=== PATIENT | male | born 1990 | race Caucasian/White ===

== ENCOUNTER 2019-05-19 14:32 | Emergency (ER) | payer OTHER, BC ==
[~2019-05-19] VITALS: Ht 182.9 cm; Wt 117.9 kg
== END 2019-05-19 16:04 | disposition home or self-care (01) ==
LOC: ED 14:32
DX: S00.03XA Contusion of scalp, initial encounter (principal); W17.89XA Other fall from one level to another, initial encounter; I10 Essential (primary) hypertension; Z79.899 Other long term (current) drug therapy
CPT/HCPCS: 99283; A9270

== ENCOUNTER 2022-01-21 23:42 | Emergency (ER) | payer OTHER ==
[~2022-01-21] VITALS: Ht 182.9 cm; Wt 140.0 kg
[~2022-01-21 23:42] MED LIST: ALEVE220 M1 PO; CYCLOBENZAPRINE10 MG PO; HYDROCHLOROTH12.5 M1 PO; IBUPROFEN600 MG PO; LIDODERM700 MG TOP; LISINOPRIL-HCT1 EAC2 PO
[2022-01-22] MEDS ORDERED: NAPROSYN500 MG PO (00:20)
== END 2022-01-22 01:05 | disposition home or self-care (01) ==
LOC: ED 23:42
DX: S63.601A Unspecified sprain of right thumb, initial encounter (principal); X58.XXXA Exposure to other specified factors, initial encounter; I10 Essential (primary) hypertension
CPT/HCPCS: 29125; 73130; 99283-25

== ENCOUNTER 2023-01-26 20:56 | Emergency (ER) | payer OTHER ==
[~2023-01-26] VITALS: Ht 182.9 cm; Wt 149.0 kg
--- OUTSIDE RECORDS SUMMARY | ~2023-01-26 | XMS | Continuity of Care Document ---
Demographics + + + | Address | [address] | | | [place] [address] | + + + | Preferred Language | Unknown | + + + | Marital Status | | + + + | Restorationist Affiliation | Unknown | + + + | Race | White | + + + | Ethnic Group | Not or | + + + Author + + + | Author | [facility] | + + + | Organization | [facility] | + + + | Address | [address] | | | [place] [address] | + + + | Phone | | + + + Care Team Providers + + + + | Care Machine Clothing Worker Name | Role | Phone | + + + + Unavailable | Unavailable | + + + + Unavailable | Unavailable | + + + + Allergies No information. Encounters No information. Functional Status No information. Immunizations No information. Medications + + + + | date | description | facility | + + + + | 2016-06-10 00:00 | LIDOCAINE | [facility] | + + + + | 2022-01-22 00:00 | NAPROXEN | [facility] | + + + + | 2022-01-22 00:00 | NAPROXEN SODIUM | [facility] | + + + + | 2016-06-10 00:00 | IBUPROFEN | [facility] | + + + + | 2022-01-22 00:00 | HYDROCHLOROTHIAZIDE | [facility] | + + + + | 2016-06-10 00:00 | CYCLOBENZAPRINE HCL | [facility] | + + + + Problems + + + + | date | description | facility | + + + + | 2016-06-10 00:00 | Low back pain | [facility] | + + + + | 2022-01-22 00:00 | Sprain of thumb | [facility] | + + + + Procedures No information. Results/Labs No information. Social History No information. Vital Signs + + + +---------+ | date | measurement | value | units | + + + +---------+ | 2022-01-21 00:00 | BMI | 41.9 | kg/m2 | + + + +---------+ | 2022-01-21 00:00 | height_metric | 182.88 | cm | + + + +---------+ | 2022-01-21 00:00 | height_standard | 72 | in | + + + +---------+ | 2022-01-21 00:00 | weight_metric | 140 | kg | + + + +---------+ | 2022-01-21 00:00 | weight_standard | 308.65 | lb | + + + +---------+ | 2022-01-22 00:00 | BP_diastolic | 90 | mmHg | + + + +---------+ | 2022-01-22 00:00 | BP_systolic | 148 | mmHg | + + + +---------+ | 2022-01-22 00:00 | heart_rate | 90 | /min | + + + +---------+ | 2022-01-22 00:00 | o2_saturation | 99 | % | + + + +---------+ | 2022-01-22 00:00 | respiration_rate | 18 | /min | + + + +---------+ | 2022-01-22 00:00 | temperature_metric | 37 | C | | | | | | + + + +---------+ | 2022-01-22 00:00 | | 98.6 | F | | | temperature_standar | | | | | d | | | + + + +---------+"
--- OUTSIDE RECORDS SUMMARY | ~2023-01-26 | XMS | Continuity of Care Document ---
Demographics + + + | Address | [address] | | | [place] [address] | + + + | Preferred Language | Unknown | + + + | Marital Status | | + + + | Alevism Affiliation | Unknown | + + + | Race | White | + + + | Ethnic Group | Not or | + + + Author + + + | Author | [facility] | + + + | Organization | [facility] | + + + | Address | [address] | | | [place] [address] | + + + | Phone | | + + + Care Team Providers + + + + | Care Ordnance Artificer Name | Role | Phone | + + + + Unavailable | Unavailable | + + + + Unavailable | Unavailable | + + + + Allergies No information. Encounters No information. Functional Status No information. Immunizations No information. Medications + + + + | date | description | facility | + + + + | 2016-06-10 00:00 | LIDOCAINE | [facility] | + + + + | 2022-01-22 00:00 | NAPROXEN | [facility] | + + + + | 2022-01-22 00:00 | NAPROXEN SODIUM | [facility] | + + + + | 2016-06-10 00:00 | IBUPROFEN | [facility] | + + + + | 2022-01-22 00:00 | HYDROCHLOROTHIAZIDE | [facility] | + + + + | 2016-06-10 00:00 | CYCLOBENZAPRINE HCL | [facility] | + + + + Problems + + + + | date | description | facility | + + + + | 2016-06-10 00:00 | Low back pain | [facility] | + + + + | 2022-01-22 00:00 | Sprain of thumb | [facility] | + + + + Procedures [...]
[~2023-01-26 20:56] MED LIST changes: +NAPROSYN500 MG PO
[2023-01-26 21:37] LABS: BASOPHILS 0.6 % (0-2); EOSINOPHILS 1.3 % (0-6); HEMATOCRIT 40.7 % (35.0-50.0); HEMOGLOBIN 13.8 g/dL (12.0-18.0); LYMPHOCYTES 32.5 % (24-44); MCH 30.8 (27-36); MCV 90.6 fl (81-99); MONOCYTES 7.1 % (0-12); NEUTROPHILS 58.5 % (39-80); PLATELET COUNT 368 K/uL (140-440); RBC 4.49 M/ul (4.3-5.7); RDW 13.4 (10.5-15.0)
[2023-01-26 21:53] LABS: ALBUMIN 3.4 g/dL (3.4-5.0); ALBUMIN/GLOBULIN RATIO 0.85 (1.1-2.4); ANION GAP 10.7 (7-21); BILIRUBIN, TOTAL 0.2 ng/dL (0.2-1.0); BUN/CREATININE RATIO 9.45 (6.0-28.6); CALCIUM 8.7 mg/dL (8.5-10.1); CREATININE, SERUM 0.74 mg/dL (0.70-1.30); MAGNESIUM 1.9 mg/dL (1.8-2.4); POTASSIUM 3.7 mmol/L (3.5-5.1); PROTEIN, TOTAL 7.4 g/dL (6.4-8.2)
[2023-01-26 22:15] VITALS: BP 148/99
--- NOTE | 2023-01-28 19:39 | EKG ---
[facility] [address] [place], [place] [address] Signed Sinus rhythm with occasional premature ventricular complexes Otherwise normal ECG No previous ECGs available Confirmed by MIGEL SALVADOR MD ([id number]) on 01/28/2023 7:38:57 PM Electronically Signed By: MIGEL SALVADOR 01/28/23 193 PATIENT NAME: CHRIS SUAREZ Electrocardiogram DATE OF : [birth year] PHYSICIAN: MIGEL SALVADOR REPORT #: [id number] REPORT IS CONFIDENTIAL AND NOT TO BE RELEASED WITHOUT AUTHORIZATION
== END 2023-01-26 22:15 | disposition home or self-care (01) ==
LOC: ED 20:56
PROVIDERS: Emergency Medicine
DX: R00.2 Palpitations (principal); I49.3 Ventricular premature depolarization; I10 Essential (primary) hypertension
CPT/HCPCS: 36415; 71045; 80053; 83735; 84484; 85025; 93005; 93010; 99285-25

== ENCOUNTER 2024-12-06 21:34 | Emergency (ER) | payer BC ==
[~2024-12-06] VITALS: Ht 182.9 cm; Wt 157.0 kg
[~2024-12-06 21:34] MED LIST changes: +ATORVASTATIN CA20 MG PO; +CEPHALEXIN500 M1 PO; +METOPROLOL SUCC50 MG PO
[2024-12-07] MEDS ORDERED: LIDOCAINE HCL 4% 1 EACH PATCH TD ONE (00:15)
[2024-12-07] MEDS ORDERED: KETOROLAC TROMETHAMINE 60 MG/2 ML VIAL IM ONE (00:15)
[2024-12-07] MEDS ORDERED: CYCLOBENZAPRINE HCL 10 MG HOME.PACK PO ONE (00:15)
[2024-12-07] MEDS ORDERED: LIDODERM1 EACH TOP (00:25)
[2024-12-07] MEDS ORDERED: CYCLOBENZAPRINE10 MG PO (00:25)
[2024-12-07 00:43] VITALS: BP 152/89
== END 2024-12-07 00:44 | disposition home or self-care (01) ==
LOC: ED 21:34
DX: S39.012A Strain of muscle, fascia and tendon of lower back, initial encounter (principal); I10 Essential (primary) hypertension; X58.XXXA Exposure to other specified factors, initial encounter
CPT/HCPCS: 96372; 99283; A9270; J1885